=== PATIENT | male | born 2000 | race Caucasian/White ===

== ENCOUNTER 2023-02-23 13:56 | Emergency (ER) | payer BC ==
[2023-02-23] MEDS ORDERED: Ketorolac Tromethamine 30 MG/ML VIAL ONE (15:10)
[2023-02-23 15:33] LABS: Bilirubin Neg (Negative); Blood, Urine Negative (Negative); Clarity Clear (Clear); Glucose, Urine (Dipstick) 50 mg/dL (Negative); Ketone, Urine Negative (Negative); Leukocyte Negative (Negative); Nitrite Negative (Negative); Protein, Urine (Dipstick) Negative (Neg-Trace)
[2023-02-23 16:01] LABS: #Eosinphils 0.1 10x3/uL (0.0-0.5); #Monocytes 0.9 10x3/uL (0.0-1.1); #Neutrophils 5.6 10x3/uL (1.5-8.4); %Basophils 0.4 % (0.0-2.0); %Eosinophils 1.6 % (0.0-6.0); %Lymphocytes 18.7 % (18.0-47.0); %Monocytes 11.4 % (0.0-10.0); %Neutrophils 67.5 % (40.0-75.0); Hematocrit 43.8 % (38.8-50.0); Hemoglobin 15.3 g/dL (13.5-17.5); Mean Corpuscular HGB CONC 34.9 g/dL (32.0-36.0); Mean Corpuscular Hemoglobin 29.1 pg (27.0-33.0); Mean Corpuscular Volume 83.4 fl (81.2-95.1); Mean Platelet Volume 10.2 fl (7.4-10.4); Platelet Count 263 10x3/uL (150-450); RBC Distribution Width 12.5 % (11.5-14.5); Red Blood Cell (RBC) Count 5.25 10x6/uL (4.32-5.72); White Blood Cell (WBC) Count 8.2 10x3/uL (3.5-10.5)
[2023-02-23 16:16] LABS: Anion Gap 13 mmol/L (10-20); BUN (Urea Nitrogen) 12 mg/dL (8.9-20.6); Calc. Creatinine Clearance 0 mL/min (70-130); Carbon Dioxide 29 mmol/L (22-29); Chloride 101 mmol/L (98-107); Potassium 4.2 mmol/L (3.5-5.1); Sodium 139 mmol/L (136-145)
[2023-02-23 16:17] LABS: ALT (SGPT) 45 U/L (8-55); AST (SGOT) 26 U/L (5-34); Albumin 4.7 g/dL (3.5-5.0); Alkaline Phosphatase 62 U/L (40-110); Bilirubin, Total 1.1 mg/dL (0.2-1.2); Calcium 9.8 mg/dL (7.8-10.44); Estimated GFR 93; Globulin 2.9 g/dL (2.4-3.5); Glucose 96 mg/dL (70-105); Lipase 25 U/L (8-78); Protein, Total 7.6 g/dL (6.0-8.3)
[2023-02-23 16:32] LABS: Bacteria/HPF Rare-Few HPF (None Seen); CAUTI Indications for Culture Pelvic or flank pain; RBC/HPF 0-3 HPF (0-3); Squamous Epithelial 0-3 HPF (0-3); WBC/HPF 0-3 HPF (0-3)
[2023-02-23 16:33] LABS: Urine Culture Reflex No No
[2023-02-23] MEDS ORDERED: Famotidine 20 MG TAB ONE (16:53)
== END 2023-02-23 16:44 | disposition home or self-care (01) ==
LOC: CSHERS 13:56
DX: K59.00 Constipation, unspecified (principal); Z87.891 Personal history of nicotine dependence
CPT/HCPCS: 76705; 80053; 81001; 83690; 85025; 96374; J1885